=== PATIENT | male | born 1930 | race Caucasian/White ===

== ENCOUNTER 2016-07-23 11:22 | Emergency (ER) | payer MEDICARE, OTHER ==
[~2016-07-23] VITALS: Ht 175.3 cm; Wt 73.0 kg
[2016-07-23 11:34] VITALS: BP 129/76; PULSE 102; RESP 16; TEMP 98.6; O2SAT 98
--- NOTE | 2016-07-23 13:13 | PD ---
HPI Chief Complaint: Fall Time Seen by Provider: 13:09 Travel History International Travel<30 days: No Contact w/Intl Traveler<30days: No Traveled to known affect area: No History of Present Illness HPI 85-year-old male presents to the emergency department for evaluation after a fall that occurred this morning. Patient states that he gets to where he can't walk anymore. However, he states this is his first time following. He states he felt weak and fell backwards. He hit his head against the roadway. Patient reports laceration to the back of the head and abrasion to the left elbow. He denies loss of consciousness. He complains of minor low back pain. He denies any dizziness, chest pain, shortness of breath, nausea, vomiting. He states his tetanus immunization is up-to-date. Patient reports history of essential tremor. He takes propanolol and aspirin. Patient Is ambulatory in the emergency department without difficulty. Patient does have a dry cough noted on exam. Patient does report drinking 3-4 beers daily. He denies any alcohol intake today. Patient lives alone. He reports the last time he fell was approximately 6 months ago. PFSH Past Medical History Hx Anticoagulant Therapy: Yes (asa 81mg) Social History Alcohol Use: Yes (3-4 beers daily) Tobacco Use: No Substance Use: No Allergies-Medications (Allergen,Severity, Reaction): Coded Allergies: Neomycin (Verified Allergy, Severe, 07/23/16) Reported Meds & Prescriptions Reported Meds & Active Scripts Active Reported Propranolol (Propranolol HCl) 10 Mg Tab 10 Mg PO DAILY Review of Systems Except as stated in HPI: all other systems reviewed are Neg Physical Exam Narrative GENERAL: Well-developed well-nourished elderly male patient, ambulatory. Afebrile. SKIN: Warm and dry. Patient has a 1 cm laceration to the occipital scalp. He also has a skin tear to the left posterior elbow. HEAD: Normocephalic. EYES: No scleral icterus. No injection or drainage. ENT: Mucosa pink and moist. No erythema or exudates. No uvular edema. No uvular , palatal, or tonsillar deviation. Airway patent. Nasal turbinates appear normal without nasal blood, purulent drainage or septal hematoma. Bilateral tympanic membranes are clear without erythema or perforation. NECK: Supple, trachea midline. No JVD or lymphadenopathy. CARDIOVASCULAR: Regular rate and rhythm without murmurs, gallops, or rubs. RESPIRATORY: Breath sounds equal bilaterally. No accessory muscle use. Dry cough noted. Lungs sounds are clear to auscultation. GASTROINTESTINAL: Abdomen soft, non-tender, nondistended. MUSCULOSKELETAL: No cyanosis, or edema. BACK: Nontender without obvious deformity. No CVA tenderness. No bony point tenderness. Data Data Last Documented VS Vital Signs Date Time Temp Pulse Resp B/P Pulse Ox O2 Delivery O2 Flow Rate FiO2 07/23/16 13:25 98 Room Air 07/23/16 11:34 98.6 102 16 129/76 Orders Electrocardiogram (07/23/16 13:04) Complete Blood Count With Diff (07/23/16 13:04) Comprehensive Metabolic Panel (07/23/16 13:04) Magnesium (Mg) (07/23/16 13:04) Ckmb (Isoenzyme) Profile (07/23/16 13:04) Troponin I (07/23/16 13:04) Urinalysis - C+S If Indicated (07/23/16 13:04) Chest, Single Ap (07/23/16 13:04) Ct Brain W/O Iv Contrast(Rout) (07/23/16 13:04) Ct Cerv Spine W/O Contrast (07/23/16 13:04) Ecg Monitoring (07/23/16 13:04) Iv Access Insert/Monitor (07/23/16 13:04) Oximetry (07/23/16 13:04) Sodium Chloride 0.9% Flush (Ns Flush) (07/23/16 13:15) Spine, Lumbar - Ltd (Ap & Lat) (07/23/16 ) Wound Care (07/23/16 13:06) Lidocai-Epi 1%-1:100,000 Inj (Xylocaine- (07/23/16 13:15) CKMB (07/23/16 13:25) CKMB% (07/23/16 13:25) Labs Laboratory Tests Test 07/23/16 13:25 White Blood Count 10.4 TH/MM3 Red Blood Count 4.04 MIL/MM3 Hemoglobin 13.7 GM/DL Hematocrit 41.7 % Mean Corpuscular Volume 103.0 FL Mean Corpuscular Hemoglobin 33.8 PG Mean Corpuscular Hemoglobin 32.8 % Concent Red Cell Distribution Width 11.6 % Platelet Count 253 TH/MM3 Mean Platelet Volume 6.4 FL Neutrophils (%) (Auto) 77.0 % Lymphocytes (%) (Auto) 9.8 % Monocytes (%) (Auto) 9.9 % Eosinophils (%) (Auto) 0.5 % Basophils (%) (Auto) 2.8 % Neutrophils # (Auto) 8.0 TH/MM3 Lymphocytes # (Auto) 1.0 TH/MM3 Monocytes # (Auto) 1.0 TH/MM3 Eosinophils # (Auto) 0.1 TH/MM3 Basophils # (Auto) 0.3 TH/MM3 CBC Comment DIFF FINAL Differential Comment Sodium Level 140 MEQ/L Potassium Level 4.0 MEQ/L Chloride Level 102 MEQ/L Carbon Dioxide Level 28.7 MEQ/L Anion Gap 9 MEQ/L Blood Urea Nitrogen 14 MG/DL Creatinine 1.10 MG/DL Estimat Glomerular Filtration 63 ML/MIN Rate Random Glucose 171 MG/DL Calcium Level 9.2 MG/DL Magnesium Level 2.1 MG/DL Total Bilirubin 0.7 MG/DL Aspartate Amino Transf 20 U/L (AST/SGOT) Alanine Aminotransferase 22 U/L (ALT/SGPT) Alkaline Phosphatase 56 U/L Total Creatine Kinase 103 U/L Creatine Kinase MB 2.2 NG/ML Troponin I LESS THAN 0.02 NG/ML Total Protein 7.2 GM/DL Albumin 3.3 GM/DL [facility] Medical Decision Making Medical Screen Exam Complete: Yes Emergency Medical Condition: Yes Medical Record Reviewed: Yes Interpretation(s) Chest x-ray - CONCLUSION: Left-sided posterior rib fractures. No acute cardiopulmonary disease identified. 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 Differential Diagnosis Laceration versus closed head injury versus intracranial abnormality versus electrolyte abnormality versus cardiac arrhythmia versus UTI versus contusion versus muscle strain versus fracture Narrative Course 85 year old male presents to the emergency department for evaluation after a fall that occurred just prior to arrival. Patient states that he could not walk anymore, lost his balance, felt weak and fell backwards. EKG, CBC, CMP, magnesium, CK, troponin, UA are ordered and pending. Chest x-ray and x-ray of the lumbar spine are ordered and pending. CT of the brain and cervical spine are ordered and pending. Patient gives verbal consent for laceration repair EKG shows sinus rhythm, heart rate 86, no acute ST changes. CBC normal WBC count of 10.4. CMP shows no acute abnormality. Magnesium is 2.1. CK is 103. Troponin is less than 0.02. Chest x-ray shows left sided posterior rib fracture ; no acute cardiopulmonary disease. X-ray of the lumbar spine shows moderate severity bony degenerative findings of the lumbar spine. CT of the brain shows no acute intracranial findings. CT of the cervical spine shows no evidence of fracture, multilevel degenerative findings. I discussed the findings with the patient. He would like to go home. He does not want to be admitted and feels that he can go home safely. I also discussed the case with my attending physician, Dr. Malhotra, who is aware of lab findings and imaging. He agrees with plan and disposition. The patient declines any pain and declines needing pain medication. I instructed the patient that he needs return if he has any worsening symptoms or if he falls again. The patient agrees. He is instructed on proper wound care. Procedures Procedure Narrative LACERATION LOCATION: Occipital scalp LENGTH: 1 cm NUMBER OF STITCHES/GILLIAN: One staple REPAIR: The area of the laceration was prepped with Betadine and sterilely draped. The wound was copiously irrigated and explored without evidence of foreign body, tendon injury or neurovascular injury. The wound was closed using staple. This was a single layer repair. A sterile dressing was applied. The patient was advised to keep the dressing clean and dry. Patient tolerated the procedure well. Diagnosis Primary Impression: Rib fractures Qualified Code: S22.42XA - Closed fracture of multiple ribs of left side, initial encounter Additional Impressions: Laceration of scalp Qualified Code: S01.01XA - Laceration of scalp, initial encounter Skin tear of elbow without complication Qualified Code: S51.012A - Skin tear of elbow without complication, left, initial encounter Referrals: Primary Care Physician 2 days Patient Instructions: General Instructions, Rib Fracture (ED), Skin Tear (ED), Staple Care (ED) Additional Instructions: Over the counter Tylenol or Ibuprofen as needed for pain. Clean skin tear and scalp laceration twice daily with soap and water and apply over the counter antibiotic ointment. Staple removal in 7 days. You may follow up with your primary care physician or return to the emergency department for this. Follow up with your primary care physician on Sunday for re-evaluation. Return to the emergency department for any acute, worsening of symptoms. Med/Other Pt SpecificInfo: No Change to Meds Disposition: 01 DISCHARGE HOME Condition: Stable Dara Mccracken Jul 23, 2016 13:13
[2016-07-23] MEDS ORDERED: PROP10TA6 PO (13:15)
[2016-07-23] MEDS ORDERED: LIDOCAINE 1%/EPINEPHrine 1:100,000 SOLN 20 ML VIAL INFIL ONE (13:15)
[2016-07-23] MEDS ORDERED: SODIUM CHLORIDE 0.9% FLUSH 5 ML FLUSH IVF PRN (13:15)
[2016-07-23 13:25] VITALS: O2SAT 98
[2016-07-23 13:29] LABS: BASOPHIL # 0.3 TH/MM3 (0-0.2); BASOPHIL % 2.8 % (0.0-2.0); EOSINOPHIL # 0.1 TH/MM3 (0-0.4); EOSINOPHIL % 0.5 % (0.0-4.0); HEMATOCRIT 41.7 % (39.0-51.0); HEMO FLAGS DIFF FINAL; LYMPH % 9.8 % (9.0-44.0); MEAN CORPUSCULAR HEMOGLOBIN 33.8 PG (27.0-34.0); MEAN CORPUSCULAR HGB CONC 32.8 % (32.0-36.0); MONO % 9.9 % (0.0-8.0); PLATELET COUNT 253 TH/MM3 (150-450); RED BLOOD COUNT 4.04 MIL/MM3 (4.50-5.90); RED CELL DISTRIBUTION WIDTH 11.6 % (11.6-17.2); WHITE BLOOD COUNT 10.4 TH/MM3 (4.0-11.0)
[2016-07-23 13:37] LABS: CHLORIDE 102 MEQ/L (98-107); SODIUM (NA) 140 MEQ/L (136-145)
[2016-07-23 13:41] LABS: ANION GAP 9 MEQ/L (5-15); BICARBONATE 28.7 MEQ/L (21.0-32.0); BLOOD UREA NITROGEN 14 MG/DL (7-18); MAGNESIUM 2.1 MG/DL (1.5-2.5)
[2016-07-23 13:44] LABS: ALT (GPT) 22 U/L (12-78); AST (GOT) 20 U/L (15-37); GLOMERULAR FILTRATION RATE 63 ML/MIN (>89)
[2016-07-23 13:45] LABS: TOTAL BILIRUBIN ADULT 0.7 MG/DL (0.2-1.0)
[2016-07-23 13:47] LABS: ALKALINE PHOSPHATASE 56 U/L (45-117); CREATINE KINASE 103 U/L (39-308)
[2016-07-23 13:59] LABS: CKMB 2.2 NG/ML (0.5-3.6)
--- NOTE | 2016-07-23 14:29 | RADHPO ---
EXAM DATE/TIME: 07/23/2016 13:37 [facility] COMPARISON: No previous studies available for comparison. INDICATIONS : Fall. Chest pain. MEDICAL HISTORY : None. SURGICAL HISTORY : None. ENCOUNTER: Initial ACUITY: 1 day PAIN SCORE: 5/10 LOCATION: Bilateral chest FINDINGS: Single AP view of the chest. Posterior seventh and eighth rib fractures on the left, likely acute to subacute. The lungs are clear. Cardiomediastinal silhouette within normal limits. No evidence of pleu ral effusion or pneumothorax. CONCLUSION: Left-sided posterior rib fractures. No acute cardiopulmonary disease identified. Cem Ontiveros MD on July 23, 2016 at 14:26 Board Certified Radiologist. This report was verified electronically.
--- NOTE | 2016-07-23 14:30 | RADHPO ---
EXAM DATE/TIME: 07/23/2016 13:39 [facility] COMPARISON: No previous studies available for comparison. INDICATIONS : Fall. Low back pain. MEDICAL HISTORY : None. SURGICAL HISTORY : None. ENCOUNTER: Initial ACUITY: 1 day PAIN SCORE: 7/10 LOCATION: Bilateral Paraspinal FINDINGS: 3 views of the lumbar spine. Mild left convex lumbar scoliosis. Bone alignment within normal limits. No evidence of fracture. Mild to moderate facet hypertrophy at L4-5 and L5-S1. Large endplate osteop hytes at L2-3, L3-4, L4-5. 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 Cem Ontiveros MD on July 23, 2016 at 14:27 Board Certified Radiologist. This report was verified electronically.
--- NOTE | 2016-07-23 14:56 | RADHPO ---
EXAM DATE/TIME: 07/23/2016 13:46 [facility] COMPARISON: No previous studies available for comparison. INDICATIONS : Fall today, laceration to back of head. RADIATION DOSE: 64.43 CTDIvol (mGy) MEDICAL HISTORY : None SURGICAL HISTORY : None. ENCOUNTER: Initial ACUITY: 1 day PAIN SCALE: 3/10 LOCATION: posterior head TECHNIQUE: Multiple contiguous axial images were obtained of the head. Using automated exposure control and adj ustment of the mA and/or kV according to patient size, radiation dose was kept as low as reasonably a chievable to obtain optimal diagnostic quality images. FINDINGS: CEREBRUM: The ventricles are normal for age. No evidence of midline shift, mass lesion, hemorrhage or acute in farction. No extra-axial fluid collections are seen. POSTERIOR FOSSA: The cerebellum and brainstem are intact. The 4th ventricle is midline. The cerebellopontine angle i s unremarkable. EXTRACRANIAL: The visualized portion of the orbits is intact. SKULL: The calvaria is intact. No evidence of skull fracture. CONCLUSION: No acute intracranial findings. Cem Ontiveros MD on July 23, 2016 at 14:53 Board Certified Radiologist. This report was verified electronically.
--- NOTE | 2016-07-23 15:01 | RADHPO ---
EXAM DATE/TIME: 07/23/2016 13:46 [facility] COMPARISON: No previous studies available for comparison. INDICATIONS : Fall today, laceration to back of head. RADIATION DOSE: 26.39 CTDIvol (mGy) MEDICAL HISTORY : None SURGICAL HISTORY : None. ENCOUNTER: Initial ACUITY: 1 day PAIN SCALE: 0/10 LOCATION: Bilateral neck TECHNIQUE: Volumetric scanning of the cervical spine was performed. Multiplanar reconstructions in the sagittal, coronal and oblique axial planes were performed. Using automated exposure control and adjustment o f the mA and/or kV according to patient size, radiation dose was kept as low as reasonably achievable to obtain optimal diagnostic quality images. FINDINGS: VERTEBRAE: Normal vertebral body height. No evidence of fracture. Calcification is seen about the odontoid proce ss. Central canal diameter within normal limits at this level. ALIGNMENT: Within normal limits. C2-C3: No evidence of focal disc protrusion. Central canal normal diameter. Neural foraminal diameters withi n normal limits. C3-C4: No evidence of focal disc protrusion. Central canal normal diameter. Neural foraminal diameters withi n normal limits. C4-C5: Mild bilateral facet hypertrophy and broad-based disc osteophyte complex. Central canal diameter with in normal limits. Neural foraminal diameters within normal limits. C5-C6: Broad-based disc osteophyte complex and bilateral facet arthrosis. No evidence of focal disc protrusi on. Central canal normal diameter. Neural foraminal diameters within normal limits. C6-C7: No evidence of focal disc protrusion. Central canal normal diameter. Neural foraminal diameters withi n normal limits. C7-T1: The bony spinal canal is normal in size. No evidence of disc bulge or herniation. The neural forami na are bilaterally patent. CONCLUSION: No evidence of fracture. Multilevel degenerative findings. Cem Ontiveros MD on July 23, 2016 at 14:54 Board Certified Radiologist. This report was verified electronically.
--- NOTE | 2016-07-24 14:36 | EKG ---
Date Performed: 07/23/2016 Time Performed: 13:15:06 PTAGE: 85 years EKG: Sinus rhythm Normal ECG PREVIOUS TRACING : 01/24/2002 12.49 DOCTOR: Lasha Noe Interpretating Date/Time 07/24/2016 14:32:08
== END 2016-07-23 15:47 | disposition home or self-care (01) ==
LOC: PHED 11:22
DX: S22.42XA Multiple fractures of ribs, left side, initial encounter for closed fracture (principal); S01.01XA Laceration without foreign body of scalp, initial encounter; S51.012A Laceration without foreign body of left elbow, initial encounter; M54.5 Low back pain; W19.XXXA Unspecified fall, initial encounter; Z79.899 Other long term (current) drug therapy
CPT/HCPCS: 12001; 70450; 71010; 72100; 72125; 80053; 82550; 82552; 83735; 84484; 85025; 93005